=== PATIENT | male | born 1995 | race Caucasian/White ===

== ENCOUNTER 2020-07-14 07:24 | Emergency (ER) | payer OTHER ==
[~2020-07-14] VITALS: Ht 139.7 cm; Wt 93.2 kg
[2020-07-14 08:15] LABS: BASO % 0.3 % (0.0-1.0); EOS # 0.1 10^3/uL (0.0-0.5); EOS % 1.9 % (0.0-3.0); HEMATOCRIT 46.2 % (42.0-52.0); HEMOGLOBIN 15.2 g/dl (13.5-17.5); LYMPH # 2.2 10^3/uL (1.5-5.0); LYMPH % 34.1 % (24.0-44.0); MEAN CORPUSCULAR HGB CONC 32.9 g/dl (32.0-36.5); MEAN CORPUSCULAR VOLUME 85.1 fl (80.0-96.0); MONO # 0.5 10^3/uL (0.0-0.8); MONO % 7.8 % (2.0-8.0); NEUTROPHILS # 3.5 10^3/uL (1.5-8.5); NEUTROPHILS % 55.7 % (36.0-66.0); PLATELET COUNT, AUTOMATED 199 10^3/uL (150-450); RED BLOOD COUNT 5.43 10^6/uL (4.30-6.10); WHITE BLOOD COUNT 6.3 10^3/uL (4.0-10.0)
--- NOTE | 2020-07-14 08:43 | REP ---
INDICATION: constipation. COMPARISON: None. TECHNIQUE: Single PA view of the chest and supine upright views of the abdomen FINDINGS: PA chest: The lung [place] are clear. Cardiac size is normal. The rosalina, mediastinum, and skeletal structures are unremarkable. There is no free subdiaphragmatic air. Supine and upright abdomen: The bowel gas pattern is normal. There are no calcifications. The skeletal structures and soft tissues otherwise are unremarkable. IMPRESSION: Negative PA chest. No free subdiaphragmatic air. Normal bowel gas pattern. Otherwise, negative supine and upright abdomen. <Electronically signed by Morgan Romero > 07/14/20 0821
[2020-07-14 08:45] LABS: ALBUMIN 4.1 GM/DL (3.2-5.2); BILIRUBIN,DIRECT 0.1 MG/DL (0.0-0.2); BILIRUBIN,TOTAL 0.3 MG/DL (0.2-1.0); TOTAL PROTEIN 7.3 GM/DL (6.4-8.2)
[2020-07-14 10:01] VITALS: BP 162/98
[2020-07-14] MEDS ORDERED: DOXY100C37 PO (10:15)
[2020-07-14] MEDS ORDERED: LIDOCAINE 1% SDV 5ML VIAL DILUENT ONE (10:15)
[2020-07-14] MEDS ORDERED: cefTRIAXone 500MG VIAL (J0696 PER 250MG) IM ONE (10:15)
== END 2020-07-14 10:51 | disposition home or self-care (01) ==
LOC: M ED 07:24
DX: N41.0 Acute prostatitis (principal); F17.200 Nicotine dependence, unspecified, uncomplicated
CPT/HCPCS: 74021; 80047; 80076; 83690; 85025; 96372; 99284; J0696